=== PATIENT | female | born 1980 | race Caucasian/White ===

== ENCOUNTER 2017-09-03 16:14 | Emergency (ER) | payer OTHER ==
[2017-09-03 16:38] VITALS: BMI 25.4
[2017-09-03 16:42] VITALS: O2SAT 100
--- NOTE | 2017-09-03 17:33 | C.PDOC ---
History Of Present Illness 37 yr old female with , 6 weeks , presents to the ER with complaints of vaginal spotting for the past 2 days. Patient states she was seen at a clinic and was told she is but no imaging was done. Patient denies nausea, vomiting, abdominal pain, diarrhea, dysuria, weakness or numbness. Time Seen by Provider: 09/03/17 17:01 Chief Complaint (Nursing): Female Genitourinary History Per: Patient History/Exam Limitations: no limitations Onset/Duration Of Symptoms: Days (2) Past Medical History Reviewed: Historical Data, Nursing Documentation, Vital Signs Vital Signs: Last Vital Signs Temp 98.1 F 09/03/17 16:37 Pulse 63 09/03/17 16:37 Resp 18 09/03/17 16:37 BP 129/79 09/03/17 16:37 Pulse Ox 100 09/03/17 18:49 Family History: States: No Known Family Hx - Social History Hx Alcohol Use: No Hx Substance Use: No - Immunization History Hx Tetanus Toxoid Vaccination: No Hx Influenza Vaccination: No Hx Pneumococcal Vaccination: No Review Of Systems Except As Marked, All Systems Reviewed And Found Negative. Gastrointestinal: Negative for: Nausea, Vomiting, Abdominal Pain, Diarrhea Genitourinary: Positive for: Vaginal Bleeding (spotting). Negative for: Dysuria Neurological: Negative for: Weakness, Numbness Physical Exam - Physical Exam Appears: Non-toxic, No Acute Distress Skin: Warm, Dry, No Rash Eye(s): bilateral: Normal Inspection, PERRL, EOMI Oral Mucosa: Moist Cardiovascular: Rhythm Regular, No Murmur Respiratory: Normal Breath Sounds, No Rales, No Rhonchi, No Wheezing Gastrointestinal/Abdominal: Normal Exam, Soft, No Tenderness, No Guarding, No Rebound Extremity: Normal ROM Neurological/Psych: Oriented x3, Normal Speech ED Course And Treatment - Laboratory Results Result Diagrams: 09/03/17 18:02 09/03/17 18:02 O2 Sat by Pulse Oximetry: 100 (RA) Pulse Ox Interpretation: Normal - CT Scan/US US - Transvaginal Other Rad Studies (CT/US): Read By Radiologist, Radiology Report Reviewed CT/US Interpretation: HISTORY: vaginal spotting. COMPARISON: None available. TECHNIQUE: Real-time transabdominal pelvic ultrasound was performed. In addition a transvaginal pelvic ultrasound was necessary to better depict pelvic anatomy. FINDINGS: UTERUS: Measures 8.1 x 5.0 x 5.8 cm. Anteverted. ENDOMETRIUM: Measures 2.1 cm in diameter. CERVIX: Trace fluid in the cervix. RIGHT OVARY: Measures 2.6 x 1.7 x 2.3 cm. Blood flow is demonstrated. 1.6 cm right ovarian cyst. LEFT OVARY: Measures 2.0 x 1.5 x 1.7 cm. Blood flow is demonstrated. FREE FLUID: No significant free fluid noted. OTHER FINDINGS: None. IMPRESSION: No evidence of intrauterine gestational sac. If indeed the patient is based on serum beta HCG values, the sonographic findings represent either: Very early IUP; embryonic demise; ectopic gestation. Follow- up with serial quantitative serum beta HCG measurements and post OBGYN follow- up as clinically indicated, since ectopic gestation cannot be excluded based only on sonographic findings. Thickened heterogeneous endometrium measuring approximately 2.1 cm. Trace fluid within the cervix. Medical Decision Making Medical Decision Making: IMPRESSION: Vaginal spotting PLAN: * US - Transvaginal * Labs * Urinalysis * * patient u/s demonstrates no finding, bhcg 398. Will discharge and advise 48- 72 hour return for repeat bhcg. Disposition Counseled Patient/Family Regarding: Studies Performed, Diagnosis - Disposition Disposition: HOME/ ROUTINE Disposition Time: 18:47 Condition: STABLE Additional Instructions: follow up with medical clinic in 2 days return to ER if symptoms worsens you need a repeat bhcg which was 398 return to ER to repeat bhcg in 2-3 days Instructions: Miscarriage, Threatened Miscarriage (DC) Forms: Gen Discharge Inst French, [employer] (French) Print Language: GREEK - Clinical Impression Clinical Impression: Threatened miscarriage, Complete - Scribe Statement The provider has reviewed the documentation as recorded by the Dhaval Trevino Provider Attestation: All medical record entries made by the Dhaval were at my direction and personally dictated by me. I have reviewed the chart and agree that the record accurately reflects my personal performance of the history, physical exam, medical decision making, and the department course for this patient. I have also personally directed, reviewed, and agree with the discharge instructions and disposition.
[2017-09-03 18:11] LABS: BASO # 0.1 K/uL (0.0-0.2); BASO % 0.6 % (0.0-2.0); EOS # 0.2 K/uL (0.0-0.7); EOS % 2.1 % (0.0-4.0); HEMOGLOBIN 12.6 g/dL (11.0-16.0); LYMPH # 3.2 K/uL (1.0-4.3); LYMPH % 29.5 % (20.0-40.0); MEAN CORPUSCULAR HEMOGLOBIN 27.3 pg (27.0-31.0); MEAN CORPUSCULAR HGB CONC 33.9 g/dL (33.0-37.0); MEAN PLATELET VOLUME 8.6 fL (7.2-11.7); MONO # 0.6 K/uL (0.0-0.8); MONO % 5.9 % (0.0-10.0); NEUT # 6.6 K/uL (1.8-7.0); NEUT % 61.9 % (50.0-75.0); RBC 4.62 Mil/uL (3.80-5.20); RED CELL DISTRIBUTION WIDTH 15.3 % (11.5-14.5); WHITE BLOOD COUNT 10.7 K/uL (4.8-10.8)
[2017-09-03 18:13] LABS: URINE BILIRUBIN NEGATIVE (NEGATIVE); URINE BLOOD 3+ (NEGATIVE); URINE CLARITY Hazy (Clear); URINE COLOR Straw (YELLOW); URINE GLUCOSE (UA) NORMAL (Normal); URINE LEUKOCYTE ESTERASE NEG Leu/uL (Negative); URINE NITRATE NEGATIVE (NEGATIVE); URINE PROTEIN NEGATIVE (NEGATIVE); URINE UROBILINOGEN NORMAL mg/dL (0.2-1.0)
[2017-09-03 18:16] LABS: MEAN CELL VOLUME 80.4 fL (81.0-99.0)
[2017-09-03 18:23] LABS: ALB/GLOB RATIO 0.9 (1.0-2.1); ALBUMIN 3.5 g/dL (3.5-5.0); ALT/SGPT 23 U/L (9-52); AST/SGOT 21 U/L (14-36); BLOOD UREA NITROGEN 11 mg/dL (7-17); CALCIUM 8.7 mg/dl (8.6-10.4); GFR AFRICAN-AMERICAN > 60; GFR NON-AFRICAN AMERICAN > 60
[2017-09-03 18:33] LABS: SQUAMOUS EPITHIAL 3 /hpf (0-5); URINE BACTERIA OCC (<OCC)
--- NOTE | 2017-09-03 18:33 | US ---
HISTORY: vaginal spotting COMPARISON: None available. TECHNIQUE: Real-time transabdominal pelvic ultrasound was performed. In addition a transvaginal pelvic ultrasound was necessary to better depict pelvic anatomy. FINDINGS: UTERUS: Measures 8.1 x 5.0 x 5.8 cm. Anteverted. ENDOMETRIUM: Measures 2.1 cm in diameter. CERVIX: Trace fluid in the cervix. RIGHT OVARY: Measures 2.6 x 1.7 x 2.3 cm. Blood flow is demonstrated. 1.6 cm right ovarian cyst. LEFT OVARY: Measures 2.0 x 1.5 x 1.7 cm. Blood flow is demonstrated. FREE FLUID: No significant free fluid noted. OTHER FINDINGS: None. IMPRESSION: No evidence of intrauterine gestational sac. If indeed the patient is based on serum beta HCG values, the sonographic findings represent either: Very early IUP; embryonic demise; ectopic gestation. Follow-up with serial quantitative serum beta HCG measurements and post OBGYN follow-up as clinically indicated, since ectopic gestation cannot be excluded based only on sonographic findings. Thickened heterogeneous endometrium measuring approximately 2.1 cm. Trace fluid within the cervix.
[2017-09-03 19:14] VITALS: BP 116/75; PULSE 65; RESP 20; TEMP 98.4
== END 2017-09-03 19:13 | disposition home or self-care (01) ==
LOC: C.ER 16:14
DX: O03.9 Complete or unspecified spontaneous abortion without complication (principal)

== ENCOUNTER 2017-09-04 21:10 | Emergency (ER) | payer SELFPAY ==
[2017-09-04 21:11] VITALS: BMI 25.4
[2017-09-04 21:46] VITALS: O2SAT 100
[2017-09-04] MEDS ORDERED: Sodium Chloride 0.9% 1,000 ML IV ONE (21:51)
--- NOTE | 2017-09-04 21:51 | C.PDOC ---
History Of Present Illness 37 year old female comes in complaining of persistent vaginal bleeding since yesterday. Patient is , about 6 weeks or less. Was seen here yesterday for heavy vaginal bleeding and large clots. Now complaining of abdominal pain as well. Quant HCG yesterday was 398. Ultrasound did not show IUP. Time Seen by Provider: 09/04/17 21:51 Chief Complaint (Nursing): Female Genitourinary History Per: Patient History/Exam Limitations: no limitations Onset/Duration Of Symptoms: Days (x2) Current Symptoms Are (Timing): Still Present Severity: Moderate Pain Scale Rating Of: 4 Quality Of Discomfort: "Pain" Associated Symptoms: denies: Fever, Chills, Nausea, Vomiting Additional History Per: Family Abnormal Vaginal Bleeding: Yes : 1 Para: 0 Past Medical History Reviewed: Historical Data, Nursing Documentation, Vital Signs Vital Signs: Last Vital Signs Temp 98.1 F 09/04/17 21:42 Pulse 74 09/04/17 21:42 Resp 20 09/04/17 21:42 BP 113/72 09/04/17 21:42 Pulse Ox 100 09/04/17 23:49 - Medical History PMH: No Chronic Diseases Surgical History: No Surg Hx Family History: States: No Known Family Hx - Social History Hx Tobacco Use: No Hx Alcohol Use: No Hx Substance Use: No - Immunization History Hx Tetanus Toxoid Vaccination: No Hx Influenza Vaccination: No Hx Pneumococcal Vaccination: No Review Of Systems Constitutional: Negative for: Fever, Chills Gastrointestinal: Positive for: Abdominal Pain. Negative for: Nausea, Vomiting Genitourinary: Positive for: Vaginal Bleeding (and clots) Physical Exam - Physical Exam Appears: Non-toxic, No Acute Distress Skin: Warm, Dry Head: Normacephalic Eye(s): bilateral: Normal Inspection Oral Mucosa: Moist Neck: Trachea Midline, Supple Chest: Symmetrical Cardiovascular: Rhythm Regular Respiratory: No Rales, No Rhonchi, No Wheezing Gastrointestinal/Abdominal: Soft, Tenderness (Mild suprapubic tenderness), No Guarding, No Rebound Back: Normal Inspection Extremity: Normal ROM Extremity: Bilateral: Atraumatic Neurological/Psych: Oriented x3 Gait: Steady ED Course And Treatment - Laboratory Results Result Diagrams: 09/04/17 22:33 09/04/17 22:33 O2 Sat by Pulse Oximetry: 100 (RA) Pulse Ox Interpretation: Normal Progress Note: Ordered blood work, repeat beta-HCG and ultrasound. Started pt on IV fluids Reevaluation Time: 23:46 Reassessment Condition: Improved Disposition Counseled Patient/Family Regarding: Studies Performed, Diagnosis, Need For Followup - Disposition Referrals: [facility] [Outside] [facility] [Outside] Disposition: HOME/ ROUTINE Disposition Time: 21:51 Condition: FAIR Additional Instructions: Please repeat BHCG in 3-5 days Instructions: Threatened Miscarriage Forms: [employer] (T[employer]) Print Language: LATVIAN - Clinical Impression Clinical Impression: Threatened miscarriage - Scribe Statement The provider has reviewed the documentation as recorded by the Scribe (Asuncion Barcenas) Provider Attestation: All medical record entries made by the Scribe were at my direction and personally dictated by me. I have reviewed the chart and agree that the record accurately reflects my personal performance of the history, physical exam, medical decision making, and the department course for this patient. I have also personally directed, reviewed, and agree with the discharge instructions and disposition.
[2017-09-04 22:30] LABS: HCG,QUALITATIVE URINE POSITIVE (NEGATIVE)
[2017-09-04 22:31] LABS: SQUAMOUS EPITHIAL 3 /hpf (0-5); URINE BACTERIA OCC (<OCC); URINE BILIRUBIN NEGATIVE (NEGATIVE); URINE BLOOD 3+ (NEGATIVE); URINE CLARITY Hazy (Clear); URINE COLOR Straw (YELLOW); URINE GLUCOSE (UA) NORMAL (Normal); URINE LEUKOCYTE ESTERASE NEG Leu/uL (Negative); URINE NITRATE NEGATIVE (NEGATIVE); URINE PROTEIN NEGATIVE (NEGATIVE); URINE UROBILINOGEN NORMAL mg/dL (0.2-1.0)
[2017-09-04 22:40] LABS: BASO # 0.1 K/uL (0.0-0.2); BASO % 0.5 % (0.0-2.0); EOS # 0.2 K/uL (0.0-0.7); EOS % 1.6 % (0.0-4.0); HEMOGLOBIN 12.8 g/dL (11.0-16.0); LYMPH # 2.6 K/uL (1.0-4.3); LYMPH % 20.9 % (20.0-40.0); MEAN CELL VOLUME 80.1 fL (81.0-99.0); MEAN CORPUSCULAR HEMOGLOBIN 26.7 pg (27.0-31.0); MEAN CORPUSCULAR HGB CONC 33.3 g/dL (33.0-37.0); MEAN PLATELET VOLUME 8.2 fL (7.2-11.7); MONO # 0.7 K/uL (0.0-0.8); MONO % 5.8 % (0.0-10.0); NEUT % 71.2 % (50.0-75.0); NRBC % 0.1 % (0.0-2.0); RBC 4.8 Mil/uL (3.80-5.20); RED CELL DISTRIBUTION WIDTH 15.5 % (11.5-14.5); WHITE BLOOD COUNT 12.6 K/uL (4.8-10.8)
[2017-09-04 22:45] LABS: PROTHROMBIN TIME 11.2 SECONDS (9.7-12.2)
[2017-09-04 22:53] LABS: ALB/GLOB RATIO 1.1 (1.0-2.1); ALBUMIN 3.7 g/dL (3.5-5.0); ALT/SGPT 26 U/L (9-52); AST/SGOT 28 U/L (14-36); BLOOD UREA NITROGEN 10 mg/dL (7-17); CALCIUM 8.9 mg/dl (8.6-10.4); GFR AFRICAN-AMERICAN > 60; GFR NON-AFRICAN AMERICAN > 60
--- NOTE | 2017-09-04 23:37 | US ---
EXAM: US Pelvis Complete, Transabdominal US Pelvis, Transvaginal US Duplex Arterial/Venous of the Pelvis, Complete EXAM DATE/TIME: 09/04/2017 9:51 PM CLINICAL HISTORY: 37 years old, female; Signs and symptoms; Other: Bleeding; Additional info: Vag bleed; LMP 07/19/17 TECHNIQUE: Real-time transabdominal and transvaginal pelvic ultrasound (complete) with image documentation. Transvaginal imaging was used for better evaluation of the endometrium and adnexa. Real-time duplex ultrasound scan of the arterial and venous flow of the pelvis with color Doppler flow and spectral waveform analysis. COMPARISON: Prior images are not available for review. Correlation is made with a report dated 09/03/17 FINDINGS: Uterus: The uterus is anteflexed. Uterus measures approximately 8.1 x 4.9 x 5.6 cm. Endometrium measures approximately 10.2 mm. Endometrium is mildly vascular on color Doppler imaging. There is no intrauterine gestation.. Right ovary: Right ovary measures approximately 2.7 x 1.5 x 2.4 cm. There is a corpus luteum in the right ovary. There are small follicles in the right ovary. There is expected blood flow on Doppler imaging Left ovary: Left ovary measures approximately 2.4 x 1.2 x 2.2 cm.There are multiple small follicles. There is intraovarian blood flow. Free fluid: There is no free fluid. Bladder: Bladder is incompletely distended. IMPRESSION: No intrauterine or ectopic gestation identified, thickened vascular endometrium; right corpus luteum Correlation with beta-hCG level advised
[2017-09-05 00:13] VITALS: BP 142/82; PULSE 78; RESP 16; TEMP 98.7
== END 2017-09-05 00:16 | disposition home or self-care (01) ==
LOC: C.ER 21:10
DX: O20.0 Threatened abortion (principal); Z3A.01 Less than 8 weeks gestation of pregnancy
CPT/HCPCS: 76830; 76856; 80053; 81001; 84702; 84703; 85025; 85610; 85730; 86850; 86900; 96360; 99284; J7040

== ENCOUNTER 2017-10-23 17:08 | Emergency (ER) | payer OTHER ==
[2017-10-23 17:09] VITALS: BMI 25.4
[2017-10-23 17:25] VITALS: RESP 18; TEMP 98.6; O2SAT 100
--- NOTE | 2017-10-23 17:42 | C.PDOC ---
Time Seen by Provider: 10/23/17 17:22 Chief Complaint (Nursing): Chest Pain Past Medical History Vital Signs: Last Vital Signs Temp 98.6 F 10/23/17 17:22 Pulse 62 10/23/17 17:22 Resp 18 10/23/17 17:22 BP 129/87 10/23/17 17:22 Pulse Ox 100 10/23/17 17:22 - Social History Hx Tobacco Use: No Hx Alcohol Use: No Hx Substance Use: No - Immunization History Hx Tetanus Toxoid Vaccination: No Hx Influenza Vaccination: No Hx Pneumococcal Vaccination: No ED Course And Treatment O2 Sat by Pulse Oximetry: 100 Disposition - Disposition Forms: [employer] (Arabic)
[2017-10-23] MEDS ORDERED: Lidocaine 5% Patch TD STA (17:43)
--- NOTE | 2017-10-23 17:46 | C.PDOC ---
History Of Present Illness 37-year-old female presents to the ED complaining of left shoulder pain, ongoing for the past several months. Pain is now radiating to the left upper chest, and worsens with movement. No other associated symptoms. She is s/p spontaneous miscarriage in August and states she was told she was anemic at that time. Patient reports taking Advil with some relief, last dose was yesterday. She denies any SOB, dizziness, numbness, tingling, or focal weakness. Time Seen by Provider: 10/23/17 17:22 Chief Complaint (Nursing): Chest Pain History Per: Patient History/Exam Limitations: no limitations Onset/Duration Of Symptoms: Days Current Symptoms Are (Timing): Still Present Exacerbating Factor(s): Movement Past Medical History Reviewed: Historical Data, Nursing Documentation, Vital Signs Vital Signs: Last Vital Signs Temp 98.6 F 10/23/17 18:37 Pulse 63 10/23/17 18:37 Resp 18 10/23/17 18:37 BP 118/83 10/23/17 18:37 Pulse Ox 100 10/23/17 18:37 Surgical History: No Surg Hx Family History: States: No Known Family Hx - Social History Hx Tobacco Use: No Hx Alcohol Use: No Hx Substance Use: No - Immunization History Hx Tetanus Toxoid Vaccination: No Hx Influenza Vaccination: No Hx Pneumococcal Vaccination: No Review Of Systems Except As Marked, All Systems Reviewed And Found Negative. Constitutional: Negative for: Fever Cardiovascular: Positive for: Chest Pain (left) Respiratory: Negative for: Shortness of Breath Musculoskeletal: Positive for: Shoulder Pain (left) Neurological: Negative for: Weakness, Numbness, Dizziness, Other (tingling) Physical Exam - Physical Exam Appears: Non-toxic, No Acute Distress Skin: Normal Color, Warm, Dry, No Rash Head: Atraumatic, Normacephalic Eye(s): bilateral: Normal Inspection, PERRL, EOMI Nose: Normal Oral Mucosa: Moist Lips: Normal Appearing Neck: Normal ROM Chest: Symmetrical, No Tenderness Cardiovascular: Rhythm Regular, No Murmur Respiratory: Normal Breath Sounds, No Rales, No Rhonchi, No Wheezing Gastrointestinal/Abdominal: Soft, No Tenderness, No Distention Extremity: Normal ROM (with full ROM of left shoulder and arm), Capillary Refill (< 2 sec), No Deformity, No Swelling Pulses: Left Radial: Normal, Right Radial: Normal Neurological/Psych: Oriented x3, Normal Speech, No Other (focal deficits) Gait: Steady ED Course And Treatment - Laboratory Results Result Diagrams: 10/23/17 17:51 10/23/17 17:51 ECG: Interpreted By Me, Viewed By Me ECG Rhythm: Sinus Rhythm ECG Interpretation: Normal Rate From EC O2 Sat by Pulse Oximetry: 100 (RA) Pulse Ox Interpretation: Normal - Other Rad x-ray left shoulder X-Ray: Viewed By Me, Read By Radiologist Interpretation: FINDINGS: BONES: Bone alignment and mineralization are normal. No acute fracture. JOINTS: Normal. Glenohumeral and acromioclavicular joints preserved. SOFT TISSUES: Normal. OTHER FINDINGS: None. IMPRESSION: No acute fracture or dislocation. Progress Note: Initial orders: Labs, EKG, Chest x-ray, X-ray left shoulder. Patient treated with IV Toradol and Lidoderm patch Progress - Re-Evaluation Re-evaluation Note: 10/23/17 18:27 IMPROVED. - Data Reviewed Data Reviewed: Lab, Diagnostic imaging, EKG, Old records Disposition Counseled Patient/Family Regarding: Studies Performed, Diagnosis, Need For Followup - Disposition Referrals: Pending Sale To [facility] [Outside] [facility] [Outside] Disposition: HOME/ ROUTINE Disposition Time: 18:27 Condition: IMPROVED Prescriptions: Cyclobenzaprine [Flexeril] 10 mg PO TID #15 tab Ibuprofen [Motrin] 600 mg PO Q6 #30 tab Lidocaine 5% [Lidoderm] 1 ea TD PRN PRN #10 patch PRN Reason: Pain, Moderate (4-7) Instructions: Shoulder Tendinopathy (DC) Forms: [employer] (Maldivian), Work Excuse Print Language: CAPE VERDEAN - Clinical Impression Clinical Impression: Chest pain, Shoulder strain - Scribe Statement The provider has reviewed the documentation as recorded by the Scribe (Asuncion Barcenas) Provider Attestation: All medical record entries made by the Scribe were at my direction and personally dictated by me. I have reviewed the chart and agree that the record accurately reflects my personal performance of the history, physical exam, medical decision making, and the department course for this patient. I have also personally directed, reviewed, and agree with the discharge instructions and disposition.
[2017-10-23 17:55] LABS: BASO # 0.1 K/uL (0.0-0.2); BASO % 0.5 % (0.0-2.0); EOS # 0.2 K/uL (0.0-0.7); EOS % 2.5 % (0.0-4.0); HEMOGLOBIN 13.2 g/dL (11.0-16.0); LYMPH # 3.2 K/uL (1.0-4.3); LYMPH % 33.5 % (20.0-40.0); MEAN CELL VOLUME 81.5 fL (81.0-99.0); MEAN CORPUSCULAR HGB CONC 34.3 g/dL (33.0-37.0); MEAN PLATELET VOLUME 7.8 fL (7.2-11.7); MONO # 0.6 K/uL (0.0-0.8); MONO % 6.4 % (0.0-10.0); NEUT # 5.4 K/uL (1.8-7.0); NEUT % 57.1 % (50.0-75.0); RBC 4.74 Mil/uL (3.80-5.20); RED CELL DISTRIBUTION WIDTH 16.3 % (11.5-14.5); WHITE BLOOD COUNT 9.4 K/uL (4.8-10.8)
[2017-10-23 18:10] LABS: BLOOD UREA NITROGEN 7 mg/dL (7-17); CALCIUM 8.6 mg/dl (8.6-10.4); GFR AFRICAN-AMERICAN > 60; GFR NON-AFRICAN AMERICAN > 60
--- NOTE | 2017-10-23 18:22 | RAD ---
PROCEDURE: Radiographs of the Left Shoulder HISTORY: Pain COMPARISON: No prior. FINDINGS: BONES: Bone alignment and mineralization are normal. No acute fracture. JOINTS: Normal. Glenohumeral and acromioclavicular joints preserved. SOFT TISSUES: Normal. OTHER FINDINGS: None. IMPRESSION: No acute fracture or dislocation.
[2017-10-23] MEDS ORDERED: Lidocaine 5% Patch TD ONE (18:25)
[2017-10-23 18:38] VITALS: BP 118/83; PULSE 63
--- NOTE | 2017-10-24 13:27 | RAD ---
Chest x-ray two views History: Chest pain. Comparison: None available. Findings: Bibasilar breast and nipple shadows. No focal infiltrate or effusion. Heart size within normal limits. Impression No focal infiltrate or effusion.
== END 2017-10-23 18:41 | disposition home or self-care (01) ==
LOC: C.ER 17:08
DX: R07.9 Chest pain, unspecified (principal); S46.912A Strain of unspecified muscle, fascia and tendon at shoulder and upper arm level, left arm, initial encounter; X58.XXXA Exposure to other specified factors, initial encounter; Y92.9 Unspecified place or not applicable
CPT/HCPCS: 71046; 73030; 80048; 84484; 85025; 96374; 99285; J1885

== ENCOUNTER 2018-07-16 12:59 | Outpatient (CLI) | payer OTHER | END 2018-07-16 13:00 | disposition home or self-care (01) | LOC: C.LAB 12:59 | DX: Z34.83 Encounter for supervision of other normal pregnancy, third trimester (principal) ==

== ENCOUNTER 2018-07-22 16:30 | Inpatient (IN) | payer MEDICAID, OTHER ==
[2018-07-22] MEDS ORDERED: Lactated Ringer's 1,000 ML IV ONE (17:41)
[2018-07-22] MEDS ORDERED: Lactated Ringer's 1,000 ML IV SCH ×2 (17:45→20:30)
[2018-07-22] MEDS ORDERED: Oxytocin 30 UNIT 30 UNITS/500 ML BAG IV ONE (18:00)
[2018-07-22] MEDS ORDERED: Magnesium Sulfate 4 gm/100 ml 4 GM/100 ML BAG IVPB ONE ×2 (18:01→19:21)
[2018-07-22 18:55] LABS: BASO % 0.3 % (0.0-2.0); EOS # 0.1 K/uL (0.0-0.7); EOS % 0.7 % (0.0-4.0); HEMOGLOBIN 11.6 g/dL (11.0-16.0); LYMPH # 2.3 K/uL (1.0-4.3); LYMPH % 22.9 % (20.0-40.0); MEAN CELL VOLUME 75.7 fL (81.0-99.0); MEAN CORPUSCULAR HEMOGLOBIN 24.6 pg (27.0-31.0); MEAN CORPUSCULAR HGB CONC 32.5 g/dL (33.0-37.0); MEAN PLATELET VOLUME 9.1 fL (7.2-11.7); MONO # 0.4 K/uL (0.0-0.8); MONO % 4.5 % (0.0-10.0); NEUT # 7.1 K/uL (1.8-7.0); NEUT % 71.6 % (50.0-75.0); NRBC % 0.1 % (0.0-2.0); RBC 4.72 Mil/uL (3.80-5.20); RED CELL DISTRIBUTION WIDTH 15.9 % (11.5-14.5); WHITE BLOOD COUNT 9.9 K/uL (4.8-10.8)
[2018-07-22 19:04] LABS: SQUAMOUS EPITHIAL 1 /hpf (0-5); URINE BACTERIA FEW (<OCC); URINE BILIRUBIN NEGATIVE (NEGATIVE); URINE BLOOD NEGATIVE (NEGATIVE); URINE CLARITY Clear (Clear); URINE COLOR Straw (YELLOW); URINE GLUCOSE (UA) NORMAL (Normal); URINE LEUKOCYTE ESTERASE NEG Leu/uL (Negative); URINE PROTEIN NEGATIVE (NEGATIVE); URINE UROBILINOGEN NORMAL mg/dL (0.2-1.0)
[2018-07-22 19:10] LABS: PROTHROMBIN TIME 10.4 SECONDS (9.7-12.2)
[2018-07-22 19:11] LABS: CREATININE, RANDOM URINE 37.4 mg/dL
[2018-07-22 19:15] LABS: ALB/GLOB RATIO 1.1 (1.0-2.1); ALBUMIN 3.4 g/dL (3.5-5.0); ALT/SGPT 25 U/L (9-52); AST/SGOT 26 U/L (14-36); BLOOD UREA NITROGEN 15 mg/dL (7-17); CALCIUM 8.6 mg/dl (8.6-10.4); GFR NON-AFRICAN AMERICAN > 60
[2018-07-22] MEDS ORDERED: Magnesium Sulfate 20 gm 20,000 MG/500 ML BAG IV ONE (19:22)
[2018-07-22 19:49] LABS: HEPATITIS B SURFACE AG Negative (NEGATIVE)
--- NOTE | 2018-07-22 19:54 | OBHP ---
Datetime: 07/22/2018 17:10 IP Adm Impression: , intrauterine IP Admit Plan: Admit to unit; Initiate labor induction protocol Admit Comment, IP Provider: SUBJECTIVE: Patient is a 38 year old at 37.5 weeks gestation ([place] of 08/07/18 by first trimester US) wh o presents for evaluation from [facility] after her BP was found to be elevated with 1+ prot einuria. She was also found to be 1 cm dilated on SVE. She states she is having lower abdominal pain. She reports movement with some leakage of vaginal fluid but denies vaginal bleeding. She has b een following MFM for weekly BPPs due to advanced maternal age. Her has been otherwise unev entful. She states she has a history of SAB in August 2017 but otherwise has no other relevant OB h istory. [employer] Hx: menarche at age 14 Menses are 6 days long every month regularly Last Pap smear was negative, per patient OBJECTIVE: BP elevated 156/98 +2 bilatteral pitting edema of LE's and also upper extremities and face + LLOYD's but denies RLQ pains SVE: 1/25%/-3 and posterior A/P: Pre-eclampsia labs ordered Admission for induction of labor for induced HTN/Preeclampsia Patient seen, examined, and plan discussed with Dr. Winston Nam, DO, PGY-1 Attestation: Pt seen and examined with Dr. Nam and agreed with his assessment and plan of ca re. Pelvic Type - PN: Adequate Extremities - PN: Normal Abdomen - PN: Normal Back - PN: Not Done Breast - PN: Not Done Lungs - PN: Normal Heart - PN: Normal Thyroid - PN: Normal Neurologic - PN: Normal HEENT - PN: Normal General - PN: Normal FHR - Baseline A Provider: 130 Membranes, Provider: Intact Contraction Comments Provider: Uterine iritability Pool Provider: Negative IP Hx Assessment: PNC records reviewed EGA AdmitDate IP: 37.5 Vital Signs Provider Details: BP elevated at 156/98 IP Chief Complaint: Signs/Symptoms Gestational HTN NICHD Variability Prov Fetus A: Moderate 6-25bpm NICHD Accel Fetus A IP Provider: 10X10 FHR Category Provider Fetus A: Category I NICHD Decel Fetus A IP Provider: None Dilatation, Provider: Closed Effacement, Provider: 25 Station, Provider: -3 Genitourinary Exam: Normal DTRs - PN: Normal
[2018-07-22] MEDS: Magnesium Sulfate 20 gm 20 GM/500 ML BAG IV SCH (20:04)
[2018-07-22 20:22] LABS: RAPID PLASMA REAGIN NONREACTIVE (NONREACTIVE)
[2018-07-23] MEDS ORDERED: Magnesium Sulfate 20 gm 20,000 MG/500 ML BAG IV ONE (06:24)
[2018-07-23] MEDS: Magnesium Sulfate 20 gm 20 GM/500 ML BAG IV SCH (06:25)
[2018-07-23 06:59] LABS: BASO % 0.3 % (0.0-2.0); EOS % 0.3 % (0.0-4.0); HEMOGLOBIN 11.2 g/dL (11.0-16.0); LYMPH % 14.7 % (20.0-40.0); MEAN CELL VOLUME 75.8 fL (81.0-99.0); MEAN CORPUSCULAR HEMOGLOBIN 25.1 pg (27.0-31.0); MEAN CORPUSCULAR HGB CONC 33.1 g/dL (33.0-37.0); MONO # 0.6 K/uL (0.0-0.8); MONO % 4.6 % (0.0-10.0); NEUT # 10.9 K/uL (1.8-7.0); NEUT % 80.1 % (50.0-75.0); NRBC % 0.1 % (0.0-2.0); RBC 4.47 Mil/uL (3.80-5.20); RED CELL DISTRIBUTION WIDTH 15.7 % (11.5-14.5); WHITE BLOOD COUNT 13.5 K/uL (4.8-10.8)
[2018-07-23 07:17] LABS: ALBUMIN 3.2 g/dL (3.5-5.0); ALT/SGPT 27 U/L (9-52); AST/SGOT 25 U/L (14-36); BLOOD UREA NITROGEN 11 mg/dL (7-17); CALCIUM 7.2 mg/dl (8.6-10.4); GFR NON-AFRICAN AMERICAN > 60
[2018-07-23] MEDS ORDERED: Bupivacaine HCl/FentaNYL Cit 100 ML EPI ONE (10:57)
[2018-07-23] MEDS ORDERED: Oxytocin 30 UNIT 30 UNITS/500 ML BAG IV SCH (12:00)
[2018-07-23] MEDS ORDERED: Oxytocin 30 UNIT 30 UNITS/500 ML BAG IV ONE (12:31)
--- NOTE | 2018-07-23 14:53 | OBADHP ---
Datetime: 07/22/2018 17:10 Admit Comment, IP Provider: SUBJECTIVE: Patient is a 38 year old at 37.5 weeks gestation ([place]O of 08/07/18 by first trimester US) wh o presents for evaluation from [facility] after her BP was found to be elevated with 1+ prot einuria. She was also found to be 1 cm dilated on SVE. She states she is having lower abdominal pain. She reports movement with some leakage of vaginal fluid but denies vaginal bleeding. She has b een following MFM for weekly BPPs due to advanced maternal age. Her has been otherwise unev entful. She states she has a history of SAB in August 2017 but otherwise has no other relevant OB h istory. [employer] Hx: menarche at age 14 Menses are 6 days long every month regularly Last Pap smear was negative, per patient OBJECTIVE: BP elevated 156/98 - 169/100 +2 bilatteral pitting edema of LE's and also upper extremities and face + LLOYD's but denies RLQ pains SVE: 1/25%/-3 and posterior A/P: Pre-eclampsia labs orderednand essentially ok. but ProtCr ratio was 0.59 Admission for induction of labor for induced HTN/Preeclampsia was ordered Will start IV Hydration and insert Cervidil for IOL Hope for vaginal delivry Patient seen, examined, and plan discussed with Dr. Winston Nam, DO, PGY-1 Attestation: Pt seen and examined with Dr. Nam and agreed with his assessment and plan of ca re. Pelvic Type - PN: Adequate Extremities - PN: Normal Abdomen - PN: Normal Back - PN: Not Done Breast - PN: Not Done Lungs - PN: Normal Heart - PN: Normal Thyroid - PN: Normal Neurologic - PN: Normal HEENT - PN: Normal General - PN: Normal FHR - Baseline A Provider: 130 Membranes, Provider: Intact Contraction Comments Provider: Uterine iritability Pool Provider: Negative IP Hx Assessment: PNC records reviewed Vital Signs Provider Details: BP elevated at 156/98 IP Chief Complaint: Signs/Symptoms Gestational HTN NICHD Variability Prov Fetus A: Moderate 6-25bpm NICHD Accel Fetus A IP Provider: 10X10 FHR Category Provider Fetus A: Category I NICHD Decel Fetus A IP Provider: None Dilatation, Provider: Closed Effacement, Provider: 25 Station, Provider: -3 Genitourinary Exam: Normal DTRs - PN: Normal EGA AdmitDate IP: 37.5 IP Adm Impression: , intrauterine IP Admit Plan: Admit to unit; Initiate labor induction protocol
[2018-07-23] MEDS ORDERED: Sodium Citrate/Citric Acid 15 ml Sol ONE (18:53)
[2018-07-23] MEDS ORDERED: Lactated Ringer's 1,000 ML IV ONE (18:54)
[2018-07-23] MEDS ORDERED: cefOXitin IV 2 gm in Dextrose 2 GM/50 ML BAG IVPB ONE ×2 (18:54→19:00)
[2018-07-23] MEDS ORDERED: Sodium Citrate/Citric Acid 15 ml Sol PO ONE (18:54)
[2018-07-23] MEDS ORDERED: Lidocaine 2% MPF (5 ml) Inj ONE ×2 (19:02→20:14)
[2018-07-23] MEDS ORDERED: Oxytocin 20 units in LR 2,000 ML IV ONE (19:29)
[2018-07-23] MEDS ORDERED: Morphine 1 mg/ml preservative-free Inj(Duramorph) ONE (19:54)
[2018-07-23] MEDS ORDERED: Oxytocin 10 Units/ml Inj ONE (20:11)
[2018-07-23] MEDS ORDERED: Magnesium Sulfate 20 gm 20 GM/500 ML BAG IV SCH (21:15)
--- NOTE | 2018-07-23 21:47 | OBDS ---
DELIVERY PERSONNEL Delivery Doctor: Chase Montero DO Scrub Nurse: Faith Stone Radio Technician: Sisi Masterson RN Anesthesiologist: MATERNAL INFORMATION Delivery Anesthesia: Spinal Medications in Delivery: Pitocin Estimated Blood Loss (ml): 600 Placenta Cultured: Yes Maternal Complications: None RN Comments: live baby girl born via primary c/section Provider Comments: Primary LTC C/S with delivery of a viable female from MARIE position and no complications. Bulb syringe utilized to suction the naso and oropharynx upon delivery of the head an d at the completion of the delivery. Apgars 9_9 and BW 6lbs 4oz. EBL 600 mls Cord blood and cord pH obtained and sent Placenta with 3 vessel cord and sent to Pathology Dr. Herman assisted and perform all the duties of a manager surgical ie, suturing, retracting, cut ting and active participation in the delivery. Dr. Leyva present for the delivery Pt and both tolerated the procedure well and remained in the OR in Stable and Satisfactory condition. LABOR SUMMARY EDC: 08/07/2018 00:00 No. Babies in Womb: 1 Attempted: No Labor Anesthesia: Epidural LABOR INFORMATION Reason for Induction: Gest. HTN/PreEclampsia/Eclampsia Cervical Ripening Agents: Cervidil (Annotations: cervidil removed by Omid Ricci RN) Oxytocin: Induction Group B Beta Strep: Negative (Annotations: 07/16/2018) Steroids Given: None Reason Steroids Not Administered: Not Applicable STAGES OF LABOR Stage 3 hrs: 0 Stage 3 min: 1 CSECTION DELIVERY Primary Indication: Other Other Primary Indication: Pt's demand Secondary Indication: Preeclampsia Other Secondary Indication: Induction at 37 weeks CSection Urgency: Elective CSection Incidence: Primary Labor: Labor Elective: Elective CSection Incision: Lower Uterine Transverse BABY A INFORMATION Delivery Date/Time: 07/23/2018 20:25 Method of Delivery: Born in Route : No : N/A Forceps: N/A Vacuum Extraction: N/A Shoulder Dystocia : No SHOULDER DYSTOCIA BABY A Infant Delivery Date/Time: 07/23/2018 20:25 PRESENTATION/POSITION BABY A Presentation: Cephalic Cephalic Presentation: Vertex Breech Presentation: N/A PLACENTA INFORMATION BABY A Placenta Delivery Time : 07/23/2018 20:26 Placenta Method of Delivery: Manual Removal Placenta Status: Delivered SCORES BABY A Heart Rate 1 min: >100 bpm Resp Effort 1 min: Good Cry Reflex Irritability 1 min: Cough or Sneeze or Pulls Away Muscle Tone 1 min: Active Motion Color 1 min: Body [employer], Extremities Blue SCORE 1 MIN: 9 Heart Rate 5 min: >100 bpm Resp Effort 5 min: Good Cry Reflex Irritability 5 min: Cough or Sneeze or Pulls Away Muscle Tone 5 min: Active Motion Color 5 min: Body [employer], Extremities Blue SCORE 5 MIN: 9 INFANT INFORMATION BABY A Gestational Age at Delivery: 37.6 Gestational Status: Infant Outcome : Liveborn Condition : Stable Infant Sex: Female IDENTIFICATION/MEDS BABY A ID Band Number: [id number] ID Band Location: Left Leg; Left Arm Sensor Applied: Yes Sensor Number: [id number] Sensor Location : Cord Clamp WEIGHT/LENGTH BABY A Birthweight (gms): 2835 Infant Weight (lb): 6 Infant Weight (oz): 4 Length Inches: 18.50 Length cms: 47.0 CORD INFORMATION BABY A No. Cord Vessels: 3 Nuchal Cord : N/A Cord Blood Taken: Yes Infant Suction: Mouth; Nose ASSESSMENT BABY A Complications: None Physical Findings at Delivery: Within Normal Limits Respirations: Appears Normal Topology Teacher/ALS Called : No Care By: Transferred To: Remains with Mother
--- NOTE | 2018-07-23 21:51 | OBPN ---
Datetime: 07/23/2018 09:00 IP Progress Impression: Normal progression of labor IP Procedures: Sterile Vag Exam IP Progress Plan: Continue present management; Induction; Anticipate Vaginal Delivery Membranes, Provider: Intact IP Progress Note Comment: SUBJECTIVE: Patient was seen and re-examined this AM. She is now s/p cervi dil which was just removed. Her last BP was 119/75 after labetolol 200 mg. She is feeling contraction s intermittently about every 4-5 minutes. She has been feeling a lot of pain and requests an epidural prior to starting any additional contractions with pitocin. Denies LLOYD, BV or EP. OBJECTIVE: FHR remains around 130 with moderate variability, SVE: 2/50%/-3 A/P: Start Pitocin to increase contraction frequency and obtain an adequate labor pattern Continue to monitor with serial SVE Anticipate a vaginal delivery Magnesium Sulfate decrease to 1 gram per hour after her level was 6.2 this AM Continue Mg sulfate 2 g/hr Consider c/s if labor not progressing Patient seen, examined, and plan discussed with Dr. Winston Nam, DO, PGY-1 Vital Signs Provider: Reviewed Vital Signs Provider Details: BP stable in 120s/70s Dilatation, Provider: 2 Effacement, Provider: 50 Station, Provider: -3 Datetime: 07/22/2018 17:10 Pool Provider: Negative Contraction Comments Provider: Uterine iritability FHR - Baseline A Provider: 130 NICHD Accel Fetus A IP Provider: 10X10 FHR Category Provider Fetus A: Category I NICHD Variability Prov Fetus A: Moderate 6-25bpm NICHD Decel Fetus A IP Provider: None
--- NOTE | 2018-07-23 22:00 | OBPN ---
Datetime: 07/23/2018 13:50 IP Progress Impression: Reassuring heart rate; Reactive non-stress test; Gest. HTN/PreEclampsi a/Eclampsia IP Informed Consent Obtain: Vaginal Delivery IP Procedures: Sterile Vag Exam IP Progress Plan: Continue present management; Induction; Anticipate Vaginal Delivery Contraction Comments Provider: Q 204 minutes with Pitocin at 12 mU/min FHR - Baseline A Provider: 120 Gestation - Est Wks by US: 37.6 Presentation-Admit: Vertex IP Progress Note Comment: Pt seen and examined Epidural working well and patient comfortable BP's responding well to Labetolol 200 mg po BID. Denies LLOYD, BV or EP Moderated LLOYD earlier today responded well to Tylenol po Pt discouraged that the process is taking too long and reassured that this is to be expected when labor is been induced at this GA and from scratch. Pt verbalized understanding and requested to proce ed. Magnesium sulfate continued at 1 gr per hour Hope for a vaginal delivery Vital Signs Provider: Reviewed; Within Normal Limits NICHD Accel Fetus A IP Provider: 15X15 NICHD Variability Prov Fetus A: Moderate 6-25bpm Dilatation, Provider: 2 Effacement, Provider: 80 Station, Provider: -3 NICHD Decel Fetus A IP Provider: None
--- NOTE | 2018-07-23 22:26 | OBPN ---
Datetime: 07/23/2018 20:01 IP Progress Impression: Reassuring heart rate; Gest. HTN/PreEclampsia/Eclampsia IP Informed Consent Obtain: Section Delivery IP Procedures: Sterile Vag Exam IP Progress Plan: Deliver- Section Membranes, Provider: Intact FHR - Baseline A Provider: 140 Gestation - Est Wks by US: 37.6 Presentation-Admit: Vertex IP Progress Note Comment: Pt seen and examined Pt upset regarding slow progress in labor and demanding a C/S delivery at this time Preeclampsia stable and asymptomatic Procedure, risks and possible complications fully reviewed with patient and FOB and they verbalize d understanding and requested to proceed. Consent signed and Anesthesia and Stained Glass Glazier Helper notified and will proceed. Vital Signs Provider: Reviewed; Within Normal Limits NICHD Accel Fetus A IP Provider: 80 NICHD Variability Prov Fetus A: Moderate 6-25bpm Dilatation, Provider: 2 Effacement, Provider: 80 Station, Provider: -2 NICHD Decel Fetus A IP Provider: None (Annotations: Data stored by CPN on behalf of user)
[2018-07-23] MEDS ORDERED: Oxycodone/Acetaminophen 5/325 mg Tab PO PRN (22:32)
[2018-07-24] MEDS ORDERED: Magnesium Sulfate 20 gm 20,000 MG/500 ML BAG IV ONE (03:15)
[2018-07-24 09:31] LABS: MEAN CELL VOLUME 76.5 fL (81.0-99.0); MEAN CORPUSCULAR HEMOGLOBIN 25.1 pg (27.0-31.0); MEAN CORPUSCULAR HGB CONC 32.9 g/dL (33.0-37.0); MEAN PLATELET VOLUME 8.3 fL (7.2-11.7); RBC 3.63 Mil/uL (3.80-5.20); RED CELL DISTRIBUTION WIDTH 15.5 % (11.5-14.5); WHITE BLOOD COUNT 10.9 K/uL (4.8-10.8)
[2018-07-24 09:38] LABS: URINE BACTERIA RARE (<OCC); URINE BILIRUBIN NEGATIVE (NEGATIVE); URINE BLOOD 3+ (NEGATIVE); URINE CLARITY Clear (Clear); URINE COLOR Straw (YELLOW); URINE GLUCOSE (UA) NORMAL (Normal); URINE LEUKOCYTE ESTERASE NEG Leu/uL (Negative); URINE PROTEIN NEGATIVE (NEGATIVE); URINE UROBILINOGEN NORMAL mg/dL (0.2-1.0)
[2018-07-24 09:43] LABS: HEMOGLOBIN 9.1 g/dL (11.0-16.0)
[2018-07-24 10:11] LABS: ALBUMIN 2.6 g/dL (3.5-5.0); BILIRUBIN,DIRECT 0.3 mg/dL (0.0-0.4)
[2018-07-24] MEDS: Simethicone 80 mg Chewtab PO SCH ×4 (10:27→22:47)
--- NOTE | 2018-07-24 12:16 | OBPPN ---
Datetime: 07/24/2018 12:13 PP Abdomen/Uterus Prov: Normal PP Lochia Prov: Normal PP Comments Phys Exam Prov: Doing well. PP Impression Prov: Induced Hypertension PP Plan Prov: Continue present management PP Progress Note Prov: Transfer to the floor Continue BP monitoring Post care as per protocol F/U labs in am IP PP Procedures: None Vital Signs Provider PP: Reviewed; Within Normal Limits Vital Signs Provider Details PP: Pt has no complaints
[2018-07-24] MEDS: Prenatal Multivit/Folic Acid/Iron Tab PO SCH (14:12)
[2018-07-24] MEDS: Oxycodone/Acetaminophen 5/325 mg Tab PO PRN ×2 (17:54→22:51)
[2018-07-25] MEDS: Oxycodone/Acetaminophen 5/325 mg Tab PO PRN ×3 (08:11→20:20)
[2018-07-25] MEDS: Simethicone 80 mg Chewtab PO SCH ×4 (09:15→21:27)
[2018-07-25] MEDS: Prenatal Multivit/Folic Acid/Iron Tab PO SCH (09:15)
[2018-07-26] MEDS: Oxycodone/Acetaminophen 5/325 mg Tab PO PRN ×2 (00:19→06:24)
[2018-07-26 08:23] VITALS: RESP 18
[2018-07-26] MEDS: Simethicone 80 mg Chewtab PO SCH ×2 (09:37→18:04)
[2018-07-26] MEDS: Prenatal Multivit/Folic Acid/Iron Tab PO SCH (09:37)
--- NOTE | 2018-07-26 15:09 | OBDCSUM ---
Datetime: 07/26/2018 12:23 Discharged to, Provider: [facility] Activity: Normal activity; Bedrest; May be up to bathroom; May be up for meals; May Show er Disch Instr Diet: Regular Discharge Diet restrict Prov: None Discharge Instructions, Provider: Routine instructions given Discharge Diagnosis, Provider: Term Delivered; Preeclampsia Discharge Time: 07/26/2018 16:00 Follow up in weeks, Provider: 7-10 days Disch Referrals: None Contraception discussed, Prov: Yes Disch Activity Restrictions: No exercising; No lifting; No driving; Minimize walking; Minimize stair -climbing; No sexual activity; Nothing in vagina - [place], tampons, douche Discharge Comment, Provider: POD # 3 S/P Primary C/S secondary to PreE and slow labor and patient demand Acute Anemia superimposed on Chronic anemia/ Asymptomatic BP's Discharge Diagnosis Prov Other: Acute Anemia Contraception after Delivery: Undecided
[2018-07-26] MEDS ORDERED: Influenza Vaccine 60 mcg/0.5 mL SYR (4YR UP) IM ONE ×2 (17:02→17:15)
[2018-07-27 00:05] VITALS: BP 145/93; PULSE 82; TEMP 98.1; O2SAT 98
--- NOTE | 2018-07-27 19:02 | OP ---
PROCEDURE DATE: 07/22/2018 PREOPERATIVE DIAGNOSES: 1. Intrauterine at 37.5 weeks. 2. Preeclampsia, on magnesium sulfate. 3. Induction of labor secondary to the preeclampsia with A slow progress in labor. 4. The patient demanded a section. POSTOPERATIVE DIAGNOSES: 1. Intrauterine at 37.5 weeks. 2. Preeclampsia, on magnesium sulfate. 3. Induction of labor secondary to the preeclampsia with slow progress in labor. 4. The patient demanded a section. PROCEDURE: Primary low-transverse cervical section with delivery of a viable female from the MARIE position and no complications. The bulb syringe was utilized to suction the nasopharynx and the oropharynx upon delivery of the head and upon completion of the delivery. Apgars were 9 and 9 at 1 and 5 minutes and a weight of 6 pounds 4 ounces. SURGEON: Mary Jo Montero DO. ASH PIT WORKER: Cirilo Herman MD. ANESTHESIA: Spinal. ANESTHESIOLOGIST: Herman Mandujano MD. ENTERPRISE SERVICES MANAGER: Lizzie Leyva MD. INDICATIONS OF SURGERY: The patient had been induced labor for the preeclampsia and for the slow progression of labor, the patient was tired and demanded a section. FINDINGS: Bilateral tubes and ovaries were within normal limits and there was no gross pathology noted. Placenta had a 3-vessel cord. SPECIMENS: 1. Cord blood, cord pH, obtained and sent. 2. Placenta with 3-vessel cord were sent to pathology. ESTIMATED BLOOD LOSS: 600 mL. COMPLICATIONS: None. PREOPERATIVE NOTE: The procedure, the risks and the possible complications were fully reviewed with the patient to include but not exclusively hemorrhage, infection or injury to bowel, bladder, bilateral tubes and ovaries, internal blood vessels or any other internal organs. The patient verbalized understanding and requested to proceed and signed the consent. DESCRIPTION OF PROCEDURE: The patient was taken to the operating room, she was given a spinal form of anesthesia, and she was sterilely prepped and draped in the usual manner for the above named procedure. The Garcia catheter was inserted. A time-out was then carried out as indicated, and after ascertaining an adequate level of anesthesia, the procedure was initiated. The knife was utilized to make a low transverse skin incision in the suprapubic area, and utilizing the Pfannenstiel technique, the abdomen was entered. The bladder flap was developed and placed underneath the Graeme blade. The second knife was the utilized to make a low transverse uterine incision in the lower uterine segment, and it was extended horizontally with bandage scissors. The infant was noted to be OP and then delivered from the MARIE position. The bulb syringe was utilized to suction the naso and the oropharynx upon delivery of the head and upon completion of the delivery, which was carried out without difficulty. The cord was doubly clamped and transected, and the was passed to the gas engine mechanic in attendance for further inspection. The cord blood and the cord pH were obtained and sent and the placenta was spontaneously delivered and sent to Pathology. The uterus was exteriorized through the abdominal incision. The endometrial cavity was cleansed with a moist lap and the uterine incision was the closed utilizing a PDS suture in a full-thickness manner with an adequate closure and adequate hemostasis. Bilateral tubes and ovaries were noted to be within normal limits, and after cleaning the cul-de-sac of blood clots, the uterus was repositioned into the abdominal cavity. Bilateral gutters were also cleansed, and after ascertaining adequate hemostasis at the uterine incision, we proceeded to close the abdomen in layers. The rectus muscle was reapproximated in the midline with a few interrupted sutures of 0 Vicryl and incorporating the peritoneum. The fascia was closed with PDS and the skin was closed with the jimmy. Sterile dressing was applied, and after evacuating the vagina of blood clots, the procedure was terminated. All instruments and sponges were accounted for x3. The patient and the tolerated the procedure well and they both left the operating room in stable and satisfactory condition. Mary Jo Montero DO
== END 2018-07-26 18:00 | disposition home or self-care (01) | DRG 540 ==
LOC: C.EROB 16:30 → C.4D 17:42 → C.4M 07-24 12:29
PROVIDERS: ADMIT Obstetrics & Gynecology; ATTEND Obstetrics & Gynecology
PROC: 3E0P7VZ Introduction of Hormone into Female Reproductive, Via Natural or Artificial Opening (ICD-10-PCS; 2018-07-22)
PROC: 10D00Z1 Extraction of Products of Conception, Low, Open Approach (ICD-10-PCS; principal; 2018-07-23)
DX: O14.94 Unspecified pre-eclampsia, complicating childbirth (principal); O62.2 Other uterine inertia; O99.02 Anemia complicating childbirth; D64.9 Anemia, unspecified; Z3A.37 37 weeks gestation of pregnancy; Z37.0 Single live birth